=== PATIENT | male | born 1965 | race Caucasian/White ===

== ENCOUNTER 2024-11-12 15:18 | Emergency (ER) | payer MEDICARE, BC ==
[2024-11-12 16:04] LABS: Hematocrit 49.6 % (42.0-52.0); Hemoglobin 16.7 g/dL (14.0-18.0); Mean Corpuscular Hemoglobin 32.0 pg (27.0-31.0); Mean Corpuscular Volume 94.9 fl (78.0-98.0); Platelet Count 185 10x3/uL (130-400); Red Blood Cell (RBC) Count 5.22 mill/uL (4.70-6.10); White Blood Cell (WBC) Count 5.9 10x3/uL (4.8-10.8)
[2024-11-12 16:18] LABS: ALT (SGPT) 43 U/L (Less than 45); AST (SGOT) 53 U/L (11-34); Albumin 4.7 g/dL (3.1-4.5); Alkaline Phosphatase 48 U/L (40-110); Anion Gap 16 mmol/L (10-20); BUN (Urea Nitrogen) 16 mg/dL (8.4-25.7); Bilirubin, Total 1.3 mg/dL (0.3-1.2); Calc. Creatinine Clearance 0 mL/min (70-130); Calcium 9.5 mg/dL (7.8-10.44); Carbon Dioxide 23 mmol/L (22-29); Chloride 104 mmol/L (98-107); Globulin 2.8 g/dL (2.4-3.5); Glucose 109 mg/dL (70-105); Lipase 35 U/L (8-78); Potassium 3.8 mmol/L (3.5-5.1); Sodium 139 mmol/L (136-145)
[2024-11-12 16:19] LABS: MDiff Complete? YES; Manual Diff?? YES; Troponin I Less than 0.010 ng/mL (< 0.028)
[2024-11-12 16:20] LABS: Platelet Adequacy Comment Appears Adequate
[2024-11-12] MEDS ORDERED: Nitroglycerin 0.4 MG TAB 1 EACH ONE (16:50)
[2024-11-12] MEDS ORDERED: Aspirin Chewable 81 MG TAB ONE (16:51)
[2024-11-12 17:32] LABS: Magnesium 1.7 mg/dL (1.6-2.6)
[2024-11-12 17:49] LABS: Thyroid Stimulating Hormone 2.5151 uIU/mL (0.35-4.94)
[2024-11-12 19:02] LABS: MONO NEGATIVE CONTROL ZONE White (Negative) (White); MONO POSITIVE CONTROL Pink Line (Positive) (PINK/RED); Mononucleosis NEGATIVE (NEGATIVE)
[2024-11-12 19:09] LABS: Troponin I Less than 0.010 ng/mL (< 0.028)
[2024-11-13 00:10] LABS: HIV (1/2) Antibody/Antigen NONREACTIVE (NonReactive); HIV 1/2 INDEX 0.06 S/CO (<1.00)
== END 2024-11-12 18:57 | disposition home or self-care (01) ==
LOC: MADERS 15:18
DX: I10 Essential (primary) hypertension (principal); R07.89 Other chest pain; F17.220 Nicotine dependence, chewing tobacco, uncomplicated; Z79.82 Long term (current) use of aspirin
CPT/HCPCS: 36415; 71045; 80053; 83690; 83735; 84443; 84484; 85025; 86308; 87389; 87426; 93005; 94760